=== PATIENT | female | born 1970 | race African-American/Black ===

== ENCOUNTER → 2018-06-02 | Outpatient (CLI) | payer OTHER ==
--- NOTE | 2018-06-02 10:03 | Diagnostic Imaging Report ---
EXAMINATION: MRI of the cervical spine without contrast HISTORY: Neck pain, weakness on the right side COMPARISON: None available TECHNIQUE: Sagittal T1, T2, STIR; axial T2, gradient echo. FINDINGS: Curvature: Normal lordosis. Vertebrae: No evidence of neoplasm, infection, or fracture. Benign hemangioma in the T1 vertebral body. Foramen magnum: No mass, Chiari malformation, or basilar invagination. Spinal Cord: Normal size and signal intensity. Soft Tissues: Unremarkable. Degenerative changes: C1-C2: Unremarkable. C2-C3: Mild symmetric disc bulge. , Uncovertebral and facet arthrosis. Mild left foraminal stenosis. C3-C4: Minimal asymmetric to left disc bulge and facet arthrosis. Mild left foraminal stenosis C4-C5: Anterior bridging osteophyte without stenosis C5-C6: Mild symmetric disc bulge, uncovertebral and facet arthrosis. Minimal foraminal narrowing. C6-C7: Mild symmetric visible, no canal or foraminal stenoses C7-T1: Unremarkable. IMPRESSION: 1. Mild degenerative foraminal stenosis on the left at C2-C3 and C3-C4. 2. Minimal spondylosis from C2-C3 to C6-C7 without canal stenosis. Signed by: Dr. Kenia Coulter M.D. on 06/02/2018 10:00 AM
== END ==
LOC: MRI 08:11
PROVIDERS: ATTEND Family Medicine
DX: M54.12 Radiculopathy, cervical region (principal); M50.30 Other cervical disc degeneration, unspecified cervical region
CPT/HCPCS: 72141

== ENCOUNTER → 2022-09-13 | Day surgery (SDC) | payer BC ==
[~2022-09-13] MED LIST: ATORVASTATIN CA20 MG PO; CARVEDILOL12.5 MG PO; FENTANYL CITRATE/PF 100MCG/2 ML INJ ONE; FUROSEMIDE40 MG PO; KETAMINE HCL INJ 50 MG/ML 10 ML VIAL ONE; LIDOCAINE HCL 2% LOCAL INJ 5 ML SDV VIAL INJ ONE; LOSARTAN POTAS100 MG PO; PHENYLEPHRINE HCL 1% 10 MG/ML VIAL ONE; POTASSIUM CHLO10 ME1 PO; POVIDONE IODINE 0.05% 0.05 % ML PO ONE; PROPOFOL IV EMULSION 10 MG/ML 20 ML VIAL ONE; SODIUM CHLORIDE 0.9% 100 ML ONE; SPIRONOLACTONE25 MG PO
[2022-09-13 12:00] VITALS: BP 138/89; PULSE 65; RESP 18; O2SAT 99
== END | disposition home or self-care (01) ==
LOC: ENDO 08:44
PROVIDERS: ATTEND Internal Medicine Gastroenterology
DX: K29.50 Unspecified chronic gastritis without bleeding (principal); K20.90 Esophagitis, unspecified without bleeding; K44.9 Diaphragmatic hernia without obstruction or gangrene; I11.0 Hypertensive heart disease with heart failure; I50.9 Heart failure, unspecified; E78.5 Hyperlipidemia, unspecified; J45.909 Unspecified asthma, uncomplicated; Z79.899 Other long term (current) drug therapy; Z68.42 Body mass index [BMI] 45.0-49.9, adult
CPT/HCPCS: 43239; 81025; 88305; 88312; 88342; J2001; J2370; J2704; J3010; J7050